=== PATIENT | female | born 1985 | race Caucasian/White ===

== ENCOUNTER 2017-11-04 08:01 | Outpatient (CLI) | payer OTHER ==
--- NOTE | 2017-11-04 10:05 | MRI ---
MRI BRAIN AND SELLA WITH AND WITHOUT CONTRAST: DATE: 11/04/17. HISTORY: A 32-year-old female with a history of closed-head injury, now with alteration in TSH, and headach es that are more frequent. TECHNIQUE: Multiplanar, multisequence MRI of the brain and sella (whole brain sequences; and thin slices through the sella turcica, including dynamic sequences), pre- and post IV injection of 7 mL of MultiHance Ga dolinium-based contrast agent. COMPARISON: None. FINDINGS: The ventricles are normal in size and configuration. No mass effect or midline shift. No abnormal i ntraaxial enhancement, mass, extraaxial fluid collection, restricted diffusion, or recent or remote h emorrhage. A few tiny T2 hyperintense signal abnormalities, including one in the right frontal deep white matter. These are nonspecific, but statistically most likely represent either minimal chronic ischemic white matter changes or migraine lesions. The optic chiasm is normal, with no extrinsic comp ression. The infundibular stalk is at midline. There is no suprasellar mass; no pituitary macroaden che. On static postcontrast coronal images through the sella turcica, there is a tiny, approximately 2 mm focus of slightly lower enhancement in the right side of the pituitary gland. This is question able for a tiny pituitary microadenoma. There is no Chiari-I malformation. There is a kateryna cisterna magna. IMPRESSION: 1. No acute or aggressive intracranial process. 2. Questionable (equivocal) for tiny pituitary microadenoma. 3. Otherwise, negative study. POS: OFF
== END 2017-11-04 08:02 | disposition home or self-care (01) ==
LOC: MRI 08:01
PROVIDERS: ATTEND Family Medicine
DX: R51 Headache (principal); R94.6 Abnormal results of thyroid function studies
CPT/HCPCS: 70553